=== PATIENT | female | born 1945 | race Caucasian/White ===

== ENCOUNTER 2017-10-20 05:34 | Emergency (ER) | payer OTHER ==
[~2017-10-20] VITALS: Ht 165.1 cm; Wt 121.0 kg
[~2017-10-20 05:34] MED LIST: BENADRYL25 MG PO; CELEBREX200 MG PO; COUMADIN,JANTOVE1 MG PO; CREON 241 CAPSULE PO; CYANOCOBALAM1000 MCG PO; DILAUDID2 MG PO; ENALAPRIL; ENDOCET 5-3251 EACH PO; ENDOCET 7.5-321 EACH PO; ENTOCORT EC3 MG PO; GABAPENTIN100 MG PO; GLIMEPIRIDE2 MG PO; GLIPIZIDE; GLUCOPHAGE1000 MG PO; GLUCOPHAGE500 MG PO; HCTZ; Hydrodiuril,Oretic,E PO; IRON325 M1 PO; LOMOTIL TABLET1 EACH PO; METFORMIN; MOBIC; NIFEDIPINE; NIFEDIPINE ER90 MG PO; OMEPRAZOLE20 M2 PO; OXYCODONE HCL5 MG PO; OXYCONTIN10 MG PO; OxyCONTIN PO; PRILOSEC; Prevacid PO; Procardia XL,Adalat PO; Remove Lidoderm Patc TD; SENNA PLUS TAB1 EACH PO; SIMVASTATIN; SINGULAIR10 MG PO; Singulair PO; TYLENOL REGULA325 MG PO; VALSARTAN-HCTZ1 EAC3 PO; VITAMIN D2000 UNIT PO; VITAMIN D31000 UNI2 PO; Vasotec PO; XARELTO10 MG PO; ZANAFLEX2 M1 PO; ZANAFLEX2 MG PO; ZANAFLEX4 MG PO; ZOCOR40 MG PO; Zocor PO; [UNRECOGNIZED DRUG - OTHER]
[2017-10-20] MEDS ORDERED: LIDODERM 5% P1 PATCH TD (06:56)
[2017-10-20 07:15] VITALS: BP 177/53
== END 2017-10-20 07:16 | disposition home or self-care (01) ==
LOC: EME 05:34
DX: M62.838 Other muscle spasm (principal); M54.2 Cervicalgia; J45.909 Unspecified asthma, uncomplicated; Z86.73 Personal history of transient ischemic attack (TIA), and cerebral infarction without residual deficits; Z88.8 Allergy status to other drugs, medicaments and biological substances
CPT/HCPCS: 99281; 99284; J1885